=== PATIENT | female | born 1990 | race Caucasian/White ===

== ENCOUNTER → 2017-10-20 | Outpatient (CLI) | payer OTHER ==
[2017-10-20 15:28] LABS: COMPLETE YES; HEMATOCRIT 42.6 % (37-47); IG% 0.2 %; LYMPH % 37.9 %; LYMPH ABS # 2.21 K/uL (1.2-3.4); MEAN CELL VOLUME 90.4 fL (80-100); MEAN CORPUSCULAR HEMOGLOBIN 31.8 pg (25-34); MEAN CORPUSCULAR HGB CONC 35.2 g/dl (32-36); MEAN PLATELET VOLUME 9.9 fL (7.4-10.4); MONO % 8.2 %; NEUT % 52.7 %; PLATELET COUNT 243 K/uL (130-400); RED BLOOD COUNT 4.71 M/uL (4.2-5.4); WHITE BLOOD COUNT 5.83 K/uL (4.8-10.8)
[2017-10-20 15:55] LABS: ALT/SGPT 119 U/L (12-78); AST/SGOT 47 U/L (15-37); BLOOD UREA NITROGEN 14 mg/dl (7-18); BUN/CREATININE RATIO 16.2 (10-20); CARBON DIOXIDE 26 mmol/L (21-32); CHLORIDE 107 mmol/L (98-107); CREATININE 0.84 mg/dl (0.60-1.20); GLUCOSE 79 mg/dl (70-99); POTASSIUM 3.8 mmol/L (3.5-5.1); SODIUM 137 mmol/L (136-145)
[2017-10-20 16:03] LABS: HEPATITIS B AB NEG
[2017-10-20 16:06] LABS: ALB/GLOB RATIO 0.9 (0.9-2); ALKALINE PHOSPHATASE 92 U/L (45-117)
[2017-10-23 19:33] LABS: HEPATITIS C RNA TMA QUAL Detected
== END | disposition home or self-care (01) ==
LOC: C.LAB1850 14:04
PROVIDERS: ATTEND Nurse Practitioner Adult Health
DX: Z87.898 Personal history of other specified conditions (principal); Z30.09 Encounter for other general counseling and advice on contraception; F19.10 Other psychoactive substance abuse, uncomplicated; R94.6 Abnormal results of thyroid function studies; Z83.49 Family history of other endocrine, nutritional and metabolic diseases; Z88.9 Allergy status to unspecified drugs, medicaments and biological substances

== ENCOUNTER → 2017-10-27 | Outpatient (CLI) | payer OTHER ==
[2017-10-27 13:24] LABS: MANUAL MICROSCOPIC REQUIRED? NO; REVIEW REQ? NO; URINE APPEARANCE CLOUDY (CLEAR); URINE BILIRUBIN NEG (NEG); URINE COLOR DK YELLOW; URINE EPITHELIAL CELL AUTO >30 /lpf (0-5); URINE NITRITE NEG (NEG); URINE SPECIFIC GRAVITY 1.025 (1.000-1.030); UROBILINOGEN NEG (NEG)
[2017-10-27 13:54] LABS: ALT/SGPT 124 U/L (12-78); AST/SGOT 54 U/L (15-37)
== END | disposition home or self-care (01) ==
LOC: C.LAB1850 11:47
PROVIDERS: ATTEND Nurse Practitioner Adult Health
DX: R30.0 Dysuria (principal); R74.8 Abnormal levels of other serum enzymes

== ENCOUNTER → 2017-11-02 | Outpatient (CLI) | payer OTHER ==
--- NOTE | 2017-11-02 07:45 | DIAGNOSTIC IMAGING REPORT ---
BILIARY ULTRASOUND CLINICAL HISTORY: R74.8 Elevated liver enzymes COMPARISON STUDY: No previous studies for comparison. FINDINGS: The gallbladder appears sonographically normal. There is no right-sided hydronephrosis. No focal hepatic masses are visualized. There is equivocal slight increase in hepatic echogenicity. There is no ductal dilatation. The common bile duct measures 3 mm. The pancreas appears normal as visualized. IMPRESSION: Equivocal slight increase in hepatic echogenicity. Otherwise normal study. No focal masses identified. No evidence of ductal dilatation. Electronically signed by: Aakash Lopez M.D. 11/02/2017 7:44 AM Dictated Date/Time: 11/02/2017 7:37 AM
== END | disposition home or self-care (01) ==
LOC: C.ULTR 07:05
PROVIDERS: ATTEND Nurse Practitioner Adult Health
DX: R74.8 Abnormal levels of other serum enzymes (principal)